=== PATIENT | male | born 1965 | race Two or more races ===

== ENCOUNTER 2017-01-02 12:07 | Day surgery (SDC) | payer OTHER ==
[2016-12-27 10:05] VITALS: BMI 31.8
--- NOTE | 2017-01-02 09:54 | P.GSHP ---
History of Present Illness H&P Date: 01/02/17 CHIEF COMPLAINT: Ventral hernia HISTORY OF PRESENT ILLNESS: The patient is a 51-year-old male who presents with a history of swelling and pain along the abdomen from a hernia. Now he presents for surgical intervention. PAST MEDICAL HISTORY: Please see list. PAST SURGICAL HISTORY: Please see list. MEDICATIONS: Please see list. ALLERGIES: Please see list. SOCIAL HISTORY: No illicit drug use FAMILY HISTORY: No reports of Crohn disease or ulcerative colitis. REVIEW OF ORGAN SYSTEMS: CONSTITUTIONAL: No reports of fevers or chills. No reports of weight loss despite prior attempts. GI: Denies any blood in stools or constipation. PHYSICAL EXAM: VITAL SIGNS: Stable GENERAL: Well-developed pleasant male in no acute distress. HEENT: No scleral icterus. Extraocular movements grossly intact. Moist buccal mucosa. NECK: Supple without lymphadenopathy. CHEST: Unlabored respirations. Equal bilateral excursions. CARDIOVASCULAR: Regular rate and rhythm. Distal 2+ pulses. ABDOMEN: Soft, nondistended. Palpable defect of the abdomen. No peritoneal signs. MUSCULOSKELETAL: No clubbing, cyanosis, or edema. ASSESSMENT: 1. Ventral hernia PLAN: 1. Recommend proceeding with robotic assisted laparoscopic ventral hernia repair with mesh. 2. Benefits and risks of surgical intervention was discussed including possibility of open technique. 3. DVT prophylaxis. 4. Antibiotic prophylaxis. Past Medical History Past Medical History: GERD/Reflux Additional Past Medical History / Comment(s): varicose veins, History of Any Multi-Drug Resistant Organisms: None Reported Additional Past Surgical History / Comment(s): colonsocopy Past Anesthesia/Blood Transfusion Reactions: Motion Sickness Past Psychological History: No Psychological Hx Reported Smoking Status: Never smoker Past Alcohol Use History: None Reported Past Drug Use History: None Reported - Past Family History Mother Family Medical History: No Reported History Medications and Allergies Home Medications Medication Instructions Recorded Confirmed Type Ibuprofen [Motrin] 200 mg PO Q6HR PRN 12/27/16 12/27/16 History Loratadine-Pseudoeph 10-240 mg 1 each PO DAILY PRN 12/27/16 12/27/16 History [Claritin-D 24 Hr] Multivitamins, Thera [Multivitamin 1 tab PO DAILY 12/27/16 12/27/16 History (formulary)] Allergies Allergy/AdvReac Type Severity Reaction Status Date / Time mold Allergy Unknown Verified 12/27/16 09:58 Penicillins Allergy Rash/Hives Verified 12/27/16 09:58 tree and shrub pollen Allergy Unknown Verified 12/27/16 09:58
[~2017-01-02 12:07] MED LIST: CLINDAMYCIN 900 MG in DEXTROSE 5% IN WATER 50 ML IVPB ONE; DEXAMETHASONE SOD PHOSPHATE 10 MG/ML 1 ML VIAL IV ONE; HEPARIN SODIUM,PORCINE 5,000 UNIT/ML 1 ML VIAL SQ ONE; LIDOCAINE 1% 20 ML VIAL (10MG/ML) FOR IV START INTRADERMA PRN; ONDANSETRON 4 MG/2 ML VIAL IVP ONE; SCOPOLAMINE 1.5MG/72HR PATCH TRANSDERM ONE; ceFAZolin 2 GM in SODIUM CHLORIDE 0.9% 100 ML IVPB ONE
[2017-01-02] MEDS: LACTATED RINGERS 1,000 ML IV SCH ×2 (12:25→18:59)
[2017-01-02 12:30] VITALS: RESP 16
[2017-01-02] MEDS ORDERED: BUPIVACAIN-EPI 0.25%-1:200,000 30 ML VIAL SQ ONE ×3 (13:13→15:51)
[2017-01-02] MEDS ORDERED: SUCCINYLCHOLINE CHLORIDE VIAL 200 MG/10 ML VIAL IV ONE (14:44)
[2017-01-02] MEDS ORDERED: MIDAZOLAM 2 MG/2 ML VIAL ONE (14:44)
[2017-01-02] MEDS ORDERED: LIDOCAINE 1% INJ 10MG/ML (20 ML MDV) ONE (14:44)
[2017-01-02] MEDS ORDERED: PROPOFOL 10 MG/ML 20 ML VIAL IV ONE (14:44)
[2017-01-02] MEDS ORDERED: ROCURONIUM BROMIDE 10 MG/ML 10 ML VIAL IV ONE (14:44)
[2017-01-02] MEDS ORDERED: DEXAMETHASONE SOD PHOS (MDV) 100 MG/10 ML VIAL ONE (14:44)
[2017-01-02] MEDS ORDERED: fentaNYL (PF) 50 MCG/ML 2 ML AMP ONE (14:44)
[2017-01-02] MEDS ORDERED: GLYCOPYRROLATE 0.2 MG/ML 2 ML VIAL ONE ×2 (14:44)
[2017-01-02] MEDS ORDERED: HYDROmorphone (PF) 1 MG/ML ONE (14:44)
[2017-01-02] MEDS ORDERED: NEOSTIGMINE 1 MG/ML 10 ML VIAL ONE (14:44)
[2017-01-02] MEDS ORDERED: LACTATED RINGERS 1,000 ML IV ONE (16:24)
[2017-01-02] MEDS ORDERED: NALOXONE 0.4 MG/ML 1 ML VIAL IV PRN (16:41)
[2017-01-02] MEDS ORDERED: HYDROcodone/APAP 5-325MG 1 EACH TAB PO PRN (16:41)
[2017-01-02] MEDS ORDERED: ONDANSETRON 4 MG/2 ML VIAL IVP PRN (16:41)
--- NOTE | 2017-01-02 16:50 | P.OP ---
Date of Procedure: 01/02/17 Preoperative Diagnosis: Postoperative Diagnosis: Procedure(s) Performed: Implants: Indications for Procedure: Operative Findings: Description of Procedure: SURGEON: EDISON AMAYA MD SOLUTION MAKER: Michelle Mitchell. PREOPERATIVE DIAGNOSES: 1. Incarcerated umbilical ventral hernia, initial. 2. Obesity, BMI 31.9. 3. Diastases recti. 4. Seasonal ALLERGIES. POSTOPERATIVE DIAGNOSES: 1. Incarcerated umbilical ventral hernia, initial. 2. Obesity, BMI 31.9. 3. Diastases recti. 4. Seasonal ALLERGIES. OPERATION: 1. Robotic-assisted laparoscopic reduction and repair of incarcerated umbilical ventral hernia, 3 cm, with Bard Ventralight ST mesh 11.4 cm. ANESTHESIA: General with 60 ml 0.25% epinephrine and normal saline mixture. ESTIMATED BLOOD LOSS: 5 mL. SPECIMENS: None. COMPLICATIONS: None. INDICATIONS: The patient is a 51-year-old male who comes in with an initial incarceration of umbilical ventral hernia. Surgical intervention with laparoscopic versus robotic and open techniques were reviewed. Placement of mesh was also reviewed. Benefits and risks were thoroughly described. Informed consent was obtained. DESCRIPTION OF PROCEDURE: The patient was brought into the operating room and laid in supine position. After general induction, the abdomen had been prepped and draped in standard sterile fashion. Ioban draping was also placed. Prior to incision, a timeout protocol was confirmed with surgical team regarding the patient's name including procedures to be performed. The robot was primed prior to the procedure. Initial incision was made with an #11 blade along the left upper quadrant after anesthetizing the skin using Exparel mixture. A 0 degree 5 mm laparoscopic trocar entry was performed. Diagnostic laparoscopy demonstrated no small bowel pathology. An incarcerated umbilical hernia 3 cm was identified. A 12 mm trocar was placed along the left lateral abdominal wall 12 cm lateral to the umbilicus. An 8 mm port was placed along the left lower quadrant under direct localization. The 5-mm port was exchanged for an 8 mm robotic port. Placements of the ports were at 10 to 15 cm from the target anatomy and at least 5 cm apart. Next, an 11.[address] mesh was entered into abdominal cavity under direct visualization. The [employer] SI robot was primed, prepped, draped then docked along the left side of the patient. I then sat at the robot Da Marybeth SI console where working arms of the robot including scissor connected to cauterty and graspers were placed by producer assistant Michelle Mitchell. Initial attention was brought to the anterior abdominal wall whereby upon careful observation a small defect of 3-cm was at the umbilics found. Using dissecting grasper as well as scissors with electro-Bovie cautery, the peritoneum was scored. The incarcerated fat of the umbilicus was delivered into the abdominal cavity. The size of the defect was 3 cm upon measurement. The fascia was cleaned of peritoneal fat to allow for 3 to 5 cm margin of the mesh. Next, hemostasis was checked with cautery. The ventral defect was closed using running suture of 0 V-Loc suture in a longitudinal fashion. Ventralight ST 11.4 cm, circular mesh was positioned with the rough side of the mesh was placed toward the anterior abdominal wall. The smooth side was placed towards the bowel. Three 2-0 V-Loc suture using a 6-inch length was ran in a peritoneum to fascia to the mesh approach. The mesh was adherent to the anterior abdominal wall. A final endoscopic imaging was obtained. The V-Loc sutures were cut with robotic scissors to the level of the fascia and extracted from the abdominal cavity by the producer assistant. The da Marybeth SI robot was undocked from the patient. I re-scrubbed into the case for closure of incisions. The fascia of the 12-mm port was reapproximated using 0 Vicryl and a Nito Escobedo. The incisions were reapproximated using 4-0 Monocryl in an interrupted subcuticular fashion. Dermabond was applied to the skin. All instruments and pneumoperitoneum were evacuated from the abdominal cavity. At the end of the procedure, needle, sponge, and instrument count had been verified correct by rn surgical pcu. The patient was taken to the postanesthesia care unit in stable condition with abdominal binder. Intraoperative films were described to the patient's family who were pleased with the level of care. FINDINGS: 1. Incarcerated umbilical hernia defect, 3 cm. Plan - Discharge Summary New Discharge Prescriptions: New HYDROcodone/APAP 5-325MG [B[place]ivar 5-325] 1 tab PO Q6HR PRN #40 tab PRN Reason: Pain No Action Loratadine-Pseudoeph 10-240 mg [Claritin-D 24 Hr] 1 each PO DAILY PRN PRN Reason: Allergy Symptoms Multivitamins, Thera [Multivitamin (formulary)] 1 tab PO DAILY Ibuprofen [Motrin] 200 mg PO Q6HR PRN PRN Reason: Pain Discharge Medication List Ibuprofen [Motrin] 200 mg PO Q6HR PRN 12/27/16 [History] Loratadine-Pseudoeph 10-240 mg [Claritin-D 24 Hr] 1 each PO DAILY PRN 12/27/16 [ History] Multivitamins, Thera [Multivitamin (formulary)] 1 tab PO DAILY 12/27/16 [History ] HYDROcodone/APAP 5-325MG [Bolivar 5-325] 1 tab PO Q6HR PRN #40 tab 01/02/17 [Rx] Follow up Appointment(s)/Referral(s): Edison Amaya MD [STAFF PHYSICIAN] - 01/07/17 (Call to confirm time of appointment) Patient Instructions/Handouts: Umbilical Hernia (GEN), Laparoscopic Herniorrhaphy (DC) Activity/Diet/Wound Care/Special Instructions: No lifting over 4 pounds in 2 weeks. Discharge Disposition: HOME SELF-CARE
[2017-01-02 17:21] VITALS: TEMP 97.2
[2017-01-02] MEDS: HYDROmorphone 1 MG/ML 1 ML SYRINGE IVP PRN ×4 (17:46→18:09)
[2017-01-02] MEDS ORDERED: KETOROLAC 30 MG/ML 1 ML VIAL IVP SCH (18:00)
[2017-01-02] MEDS ORDERED: HYDROcodone/APAP 5-325MG 1 EACH TAB PO ONE (18:52)
[2017-01-02 19:05] VITALS: BP 125/83; PULSE 88
== END 2017-01-02 20:14 | disposition home or self-care (01) ==
LOC: OR 12:07
PROVIDERS: ATTEND Surgery Plastic and Reconstructive Surgery
DX: K42.0 Umbilical hernia with obstruction, without gangrene (principal); E66.9 Obesity, unspecified; Z68.31 Body mass index [BMI] 31.0-31.9, adult; Z88.0 Allergy status to penicillin; Z91.09 Other allergy status, other than to drugs and biological substances
CPT/HCPCS: 49653; S2900; 88302